=== PATIENT | female | born 1995 | race Caucasian/White ===

== ENCOUNTER 2016-12-12 20:26 | Inpatient (IN) | payer MEDICAID, OTHER ==
[~2016-12-12] VITALS: Ht 167.6 cm; Wt 72.3 kg
--- NOTE | 2016-12-12 20:26 | NUR ---
BIBA TO ER BED 3
--- NOTE | 2016-12-12 20:27 | NUR ---
Patient being evaluated by DR. MAZARIEGOS at bedside.
[2016-12-12 20:30] VITALS: BP 108/53
--- NOTE | 2016-12-12 20:30 | NUR ---
21 Y/O M BIBA C/O LEFT WRIST LACERATION 6 CM, SHE HURT HERSELF BY CUTTING HER WRIST WITH ENVIRONMENTAL SPECIALIST, CHRISTA OGDEN WAS ON SCENE AND PUT ON . STATES SHE IS IN PAIN 11/13 BUT REFUSES ANY MEDS FOR PAIN. ER MADE AWARE.
--- NOTE | 2016-12-12 20:45 | NUR ---
PT RESTING IN BED, VSS. STATES SHE IS IN PAIN BUT REFUSES MED FOR PAIN. ER MD MADE AWARE.
[2016-12-12 21:00] LABS: BASOPHILS # (AUTO) 0.2 K/uL (0.00-0.22); BASOPHILS % (AUTO) 2.5 % (0.0-2.0); EOSINOPHILS # (AUTO) 0.1 K/uL (0-0.4); EOSINOPHILS % (AUTO) 1.5 % (0.0-4.0); HEMATOCRIT 39.1 % (36-48); HEMOGLOBIN 13.2 g/dL (12.0-16.0); LYMPHOCYTES # (AUTO) 1.6 K/uL (2.5-16.5); LYMPHOCYTES % (AUTO) 23.7 % (20.5-51.1); MEAN CORPUSCULAR HEMOGLOBIN 28 pg (27-31); MEAN CORPUSCULAR HGB CONC 34 g/dL (33-37); MEAN CORPUSCULAR VOLUME 81 fL (80-94); MONOCYTES # (AUTO) 0.4 K/uL (0.8-1.0); MONOCYTES % (AUTO) 6.4 % (1.7-9.3); NEUTROPHILS # (AUTO) 4.4 K/uL (1.8-7.7); NEUTROPHILS % (AUTO) 65.9 % (42.2-75.2); PLATELET COUNT (AUTO) 252 K/uL (140-450); RED BLOOD CELL COUNT(AUTO) 4.81 MIL/uL (4.20-5.40); RED CELL DISTRIBUTION WIDTH 12.7 % (11.6-13.7); WHITE BLOOD COUNT (AUTO) 6.7 K/uL (4.8-10.8)
[2016-12-12 21:13] LABS: ANION GAP 13.8 (8-16); CALCIUM 8.8 mg/dL (8.5-10.1); CARBON DIOXIDE 27.8 mmol/L (21-32); CHLORIDE 105 mmol/L (98-107); CREATININE 0.9 mg/dL (0.6-1.3); GFR ARICAN-AMERICAN 102 mL/min (>90); GFR NON ARICAN-AMERICAN 84 mL/min (>90); GLUCOSE 94 mg/dL (74-106); POTASSIUM 3.6 mmol/L (3.5-5.1); SODIUM SERUM 143 mmol/L (136-145); UREA NITROGEN, BLOOD 9 mg/dL (7-18)
[2016-12-12 21:19] LABS: ALANINE AMINOTRANSFERASE 14 U/L (14-59); ALBUMIN 4.2 g/dL (3.4-5.0); ALCOHOL, BLOOD < 3 mg/dL (<3); ALKALINE PHOSPHATASE 73 U/L (46-116); ASPARTATE AMINOTRANSFERASE 11 U/L (15-37); TOTAL BILIRUBIN 0.3 mg/dL (0.0-1.0); TOTAL PROTEIN, SERUM 8.2 g/dL (6.4-8.2)
[2016-12-12 21:20] LABS: ACETAMINOPHEN < 0.5 ug/ml (10-30); SALICYLATE < 2.8 mg/dL (2.8-20.0)
[2016-12-12 21:22] LABS: INR 1.1 (0.8-1.2); PROTHROMBIN TIME 10.8 secs (10.8-13.4)
[2016-12-12 21:27] LABS: AMPHETAMINE, URINE NEG. ng/ml (NEG <=1000); BARBITURATE, URINE NEG. ng/ml (NEG <=200); BENZODIAZEPINE, URINE NEG. ng/mL (NEG <=200); CANNABINOID, URINE POS. ng/mL (NEG <=50); COCAINE, URINE NEG. ng/mL (NEG <=300); OPIATE, URINE NEG. ng/mL (NEG <=2000); PHENCYCLIDINE SCREEN,URINE NEG. ng/mL (NEG <=25)
--- NOTE | 2016-12-12 21:30 | NUR ---
Patient appears to be resting comfortably in bed. Vital Signs within normal limits. Respirations even and unlabored.
--- NOTE | 2016-12-12 22:45 | NUR ---
PT RESTING IN BED, NO S/S OF DISTRESS NOTED AT THE MOMENT. VS REMAIN STABLE.
--- NOTE | 2016-12-12 22:50 | NUR ---
Patient will be admitted to care of DR. ANDERS. Admited to TELEMETRY. Will go to [id number]. Belongings list completed. Report to MARA HANSEN.
[2016-12-12] MEDS ORDERED: ONDANSETRON 4 MG/2 ML VIAL IM/IVP PRN (22:55)
[2016-12-12] MEDS ORDERED: MORPHINE SULFATE 2 MG/ML SYR IVP PRN (22:55)
[2016-12-12] MEDS ORDERED: HYDROcodone/APAP 7.5/325 MG 1 TAB PO PRN (22:55)
[2016-12-12] MEDS ORDERED: ACETAMINOPHEN 325 MG TAB PO PRN (22:55)
[2016-12-12] MEDS ORDERED: DOCUSATE SODIUM 100 MG GELCAP PO PRN (22:55)
[2016-12-12] MEDS ORDERED: LORazepam 1 MG TAB PO PRN (22:55)
[2016-12-12 23:00] VITALS: BP 121/80
--- NOTE | 2016-12-12 23:00 | NUR ---
PT CAME TO THE UNIT VIA GURNEY FROM THE ER. AMBULATED TO THE BED. IS AOX4. ORIENTED PT TO THE UNIT. VITAL SIGNS TAKEN AND ARE STABLE. NO S/S OF DISTRESS. NO COMPLAINTS OF PAIN. WITH LEFT IV R HAND 22 G, SALINE LOCK, INTACT AND PATENT. WITH LEFT WRIST INJURY WRAPPED IN KERLEX. INITIAL ASSESSMENT DONE AND ADMISSION BUT GAVE LIMITED INFORMATION. WILL CONTINUE TO MONITOR. SAFETY PRECAUTIONS IN PLACE.
--- NOTE | 2016-12-12 23:15 | NUR ---
PT HAS 1:1 SITTER.
[2016-12-12 23:29] LABS: APPEARANCE,URINE CLEAR (CLEAR); BILIRUBIN,URINE NEGATIVE (NEGATIVE); BLOOD, URINE 3+ (NEGATIVE); COLOR,URINE YELLOW (YELLOW); LEUKOCYTE ESTERASE ,URINE NEGATIVE (NEGATIVE); NITRITE, URINE NEGATIVE (NEGATIVE); PROTEIN,URINE NEGATIVE (NEGATIVE); UGLUCOSE NEGATIVE (NEGATIVE)
[2016-12-12 23:46] LABS: CHOL/HDL RATIO 3.9 (1-4.5); FREE T4 (FREE THYROXINE) 0.98 ng/dL (0.76-1.46); MAGNESIUM 1.9 mg/dL (1.8-2.4); PHOSPHORUS 3.5 mg/dL (2.5-4.9); THYROID STIMULATING HORMONE 0.93 uIU/mL (0.34-3.74)
[2016-12-12 23:47] LABS: BACTERIA,URINE FEW /HPF (None Seen); CALCIUM OXALATE CRYSTALS,UR 0-3 /HPF (None Seen); WBC,URINE 0-5 (RARE) /HPF (0-5)
[2016-12-13] MEDS: NACL 0.9% 1,000 ML IV SCH ×2 (00:34→16:06)
--- NOTE | 2016-12-13 00:34 | NUR ---
PT SEEN ON BED ASLEEP. WILL CONTINUE TO MONITOR. SAFETY CHECKS IN PLACE.
--- NOTE | 2016-12-13 02:36 | NUR ---
PT SEEN ON BED ASLEEP. NO S/S OF DISTRESS. WILL CONTINUE TO MONITOR. SAFETY CHECKS IN PLACE.
[2016-12-13 04:00] VITALS: BP 104/67
--- NOTE | 2016-12-13 04:00 | NUR ---
VITAL SIGNS TAKEN AND IS STABLE. NO S/S OF DISTRESS. NO COMPLAINTS OF PAIN. WILL CONTINUE TO MONITOR. SAFETY CHECKS IN PLACE.
--- NOTE | 2016-12-13 06:38 | NUR ---
PT SEEN ON BED ASLEEP. NO S/S OF DISTRESS. SITTER AT BEDSIDE. WILL CONTINUE TO MONITOR. SAFETY CHECKS IN PLACE.
--- NOTE | 2016-12-13 07:15 | NUR ---
ENDORSED TO AM NURSE FOR CONTINUITY OF CARE. IN STABLE CONDITION.
--- NOTE | 2016-12-13 07:16 | NUR ---
PT AWAKE ALERT AND ORIENTED X4. BREATHING EVENLY AND UNLABORED. NO SIGNS OF ACUTE DISTRESS. SKIN IS WARM AND DRY. NOTED DRESSING ON LEFT WRIST, NO BLEEDING OR DISCHARGE NOTED. PT WITH DX OF 5150 SUICIDAL IDEATION. SAFETY PRECAUTIONS IN PLACE. 1:1 SITTER AT BEDSIDE. NO EPISODE OF SUICIDAL THOUGHTS NOTED AT THIS TIME. NO C/O ANY BOWEL BLADDER DISCOMFORT.NO C/O ANY PAIN. ALL NEEDS ATTENDED. CALL LIGHT WITHIN REACH.
[2016-12-13 08:00] VITALS: BP 119/73
[2016-12-13] MEDS: PANTOPRAZOLE 40 MG TABEC PO SCH ×2 (08:19→21:44)
--- NOTE | 2016-12-13 08:58 | NUR ---
PATIENT HAS BEEN SCREENED AND CATEGORIZED LOW NUTRITION RISK. PATIENT WILL BE SEEN WITHIN 7 DAYS OF ADMISSION. 12/19/[address]
--- NOTE | 2016-12-13 10:00 | NUR ---
PT RESTING WELL IN BED, 1:1 SITTER AT BEDSIDE. NO NOTED EPISODES OF SUICIDAL IDEATION. CONTINUE TO MONITOR.
[2016-12-13] MEDS ORDERED: SERT100T PO (10:20)
[2016-12-13] MEDS ORDERED: ESK300 PO (10:20)
[2016-12-13] MEDS ORDERED: LITHIUM CARBONATE 300 MG TAB PO SCH (10:24)
[2016-12-13] MEDS ORDERED: SERTRALINE 50 MG TAB PO SCH (10:24)
[2016-12-13 11:48] VITALS: BP 106/65
--- NOTE | 2016-12-13 13:02 | NUR ---
SS NOTE: SENT PSYCH PLACEMENT INQUIRIES TO: - [facility] - [facility] - [facility] - [facility] - [facility] - [facility]
--- NOTE | 2016-12-13 13:38 | NUR ---
OMA FROM [facility] CAN'T ACCEPT THE PATIENT DUE TO HER AGE.
[2016-12-13 16:00] VITALS: BP 116/70
--- NOTE | 2016-12-13 16:19 | NUR ---
SS NOTE: PER NETTE FROM [facility], THEY DO NOT TAKE [facility] PER ESTHER FROM [facility], PT'S INFORMATION IS PENDING REVIEW PER SHAHEEN FROM [facility], NO FEMALE BEDS AVAILABLE PER JACK FROM [facility], NO FEMALE BEDS AVAILABLE
--- NOTE | 2016-12-13 18:10 | NUR ---
PT WAS SEE BY DR. NAJERA, NOTED CLEARED PT FOR 5150, ARRANGE WITH SS FOR F/U PSYCH REFERRAL AND PSYCHOTHERAPY. PT AWARE, CONTINUE TO MONITOR.
--- NOTE | 2016-12-13 19:26 | NUR ---
P AWAKE AND RESPONSIVE, NO SIGNS OF ACUTE DISTRESS. ENDORSED TO ONCOMING MATERIAL CHASER NURSE FOR CONTINUITY OF CARE.
--- NOTE | 2016-12-13 19:30 | NUR ---
RECEIVED PT IN STABLE CONDITION FROM AM NURSE. ON TELE MONITOR. AWAKE , ALERT AND ORIENTED X4. WITH VISITOR AT BEDSIDE. NO C/O ANY DISCOMFORT NOR PAIN NOTED. HAS IVF INFUSING WELL ON THE RT HAND #22. CLEAR AND PATENT. AMBULATORY TO BATHROOM. PLAN OF CARE DISCUSSED AND VERBALIZED UNDERSTANDING. CALL LIGHT PLACED WITHIN EASY REACH. WILL CONTINUE TO MONITOR .
[2016-12-13 19:45] VITALS: BP 125/78
--- NOTE | 2016-12-13 21:00 | NUR ---
KERLIX ON THE LT WRIST WAS REMOVED PER PT REQUEST. LACERATION WITH DERMABAND. NO BLEEDING NOTED. AREA CLEANED WITH NS THEN PAT DRY, THEN COVERED WITH NON ADHESIVE DRESSING.
[2016-12-14 00:18] VITALS: BP 116/70
--- NOTE | 2016-12-14 02:00 | NUR ---
SLEEPING WELL. NO S/S DISCOMFORT NOTED.
[2016-12-14 04:00] VITALS: BP 122/68
[2016-12-14 05:37] LABS: BASOPHILS # (AUTO) 0.1 K/uL (0.00-0.22); BASOPHILS % (AUTO) 1.8 % (0.0-2.0); EOSINOPHILS # (AUTO) 0.1 K/uL (0-0.4); EOSINOPHILS % (AUTO) 1.6 % (0.0-4.0); HEMATOCRIT 38.6 % (36-48); HEMOGLOBIN 12.9 g/dL (12.0-16.0); LYMPHOCYTES # (AUTO) 1.9 K/uL (2.5-16.5); MEAN CORPUSCULAR HEMOGLOBIN 28 pg (27-31); MEAN CORPUSCULAR HGB CONC 34 g/dL (33-37); MEAN CORPUSCULAR VOLUME 82 fL (80-94); MONOCYTES # (AUTO) 0.6 K/uL (0.8-1.0); MONOCYTES % (AUTO) 7.6 % (1.7-9.3); NEUTROPHILS # (AUTO) 5.4 K/uL (1.8-7.7); PLATELET COUNT (AUTO) 249 K/uL (140-450); RED CELL DISTRIBUTION WIDTH 12.7 % (11.6-13.7); WHITE BLOOD COUNT (AUTO) 8.1 K/uL (4.8-10.8)
[2016-12-14 05:49] LABS: CALCIUM 8.5 mg/dL (8.5-10.1); CARBON DIOXIDE 23.8 mmol/L (21-32); CREATININE 0.7 mg/dL (0.6-1.3); POTASSIUM 3.8 mmol/L (3.5-5.1)
--- NOTE | 2016-12-14 07:00 | NUR ---
PT ON STABLE CONDITION . NO C/O OF ANY DISCOMOFORT NOTED.
--- NOTE | 2016-12-14 07:25 | NUR ---
RECEIVED REPORT FROM THE FILTER PULP WASHER NURSE AT BEDSIDE FOR CONTINUITY OF CARE. PT AWAKE AND ALERT AND ORIENTED. INTRODUCED MYSELF AND UPDATED THE BOARD. PT HAS HER BREAKFAST BUT IS NOT EATING . NO APPETITE. PT IS NO LONGER ON 1:1 SITTER. PER MD, SHE NEEDS PLACEMENT FOR PSYCHOTHERAPY. WILL AWAIT PLACEMENT. NOTED PT HAS SCARS FROM CUTTING ON L WRIST. TRANSPARENT DRESSING IN PLACE. PT IS ANXIOUS TO SEE MD AND TO BE TRANSFERRED. WILL CONTINUE TO MONITOR PT.
[2016-12-14 08:00] VITALS: BP 131/82
[2016-12-14] MEDS: NACL 0.9% 1,000 ML IV SCH (08:36)
[2016-12-14] MEDS: PANTOPRAZOLE 40 MG TABEC PO SCH (08:37)
--- NOTE | 2016-12-14 08:40 | NUR ---
ADMINISTERED MORNING MEDS. PT TOLERATED WELL. WILL CONTINUE TO MONITOR PT.
[2016-12-14] MEDS ORDERED: LITHIUM CARBONATE 300 MG TAB PO SCH (09:00)
[2016-12-14] MEDS ORDERED: SERTRALINE 50 MG TAB PO SCH (09:00)
--- NOTE | 2016-12-14 09:00 | NUR ---
PT NAUSEATED AND VOMITED. GAVE ZOFRAN. FAMILY AT BEDSIDE. WILL CONTINUE TO MONITOR PT.
[2016-12-14 09:21] LABS: T4 (THYROXINE) 8.2 ug/dL (4.5-12.0)
--- NOTE | 2016-12-14 10:47 | NUR ---
PT WAKE AND ORIENTED. FAMILY AT BEDSIDE. WAITING FOR D/C. WILL CONTINUE TO MONITOR PT.
--- NOTE | 2016-12-14 11:11 | NUR ---
SS NOTE: I SPOKE WITH PT BEDSIDE AND PROVIDED HER WITH OUTPT [facility].
[2016-12-14 12:00] VITALS: BP 115/73
--- NOTE | 2016-12-14 13:10 | NUR ---
D/C INSTRUCTIONS GIVEN. ANSWERED ALL QUESTIONS. PT VERBALIZED UNDERSTANDING. SIGNED D/C PAPERS. REMOVED IV, CANNULA INTACT. NO BLEEDING NOTED. REMOVED ID BANDS. REMOVED TELE MONITOR. PT WILL GET DRESSED AND WILL GATHER HER BELONGINGS. WILL LET ME KNOW WHEN HER RIDE GETS HERE.
[2016-12-14 13:11] LABS: HEMOGLOBIN A1C 5.3 % (4.8-5.6)
--- NOTE | 2016-12-14 13:40 | NUR ---
SAMPLE COORDINATOR WHEELING OUT PT INTO THE LOBBY AND OUT TO THE FRONT. FAMILY WITH WITH PT. PERSONAL BELONGINGS WITH PT. PT IN STABLE CONDITION.
== END 2016-12-14 13:40 | disposition home or self-care (01) | DRG 917 ==
LOC: MED 20:26 → MTU 22:33
PROVIDERS: ADMIT Family Medicine; ATTEND Family Medicine
PROC: 0HQEXZZ Repair Left Lower Arm Skin, External Approach (ICD-10-PCS; principal; 2016-12-12)
DX: T40.7X1A Poisoning by cannabis (derivatives), accidental (unintentional), initial encounter (principal); G92 Toxic encephalopathy; R45.851 Suicidal ideations; F33.2 Major depressive disorder, recurrent severe without psychotic features; E78.5 Hyperlipidemia, unspecified; F12.10 Cannabis abuse, uncomplicated; F17.210 Nicotine dependence, cigarettes, uncomplicated; R31.29 Other microscopic hematuria; S61.512A Laceration without foreign body of left wrist, initial encounter; X78.8XXA Intentional self-harm by other sharp object, initial encounter; Y93.89 Activity, other specified; Z90.49 Acquired absence of other specified parts of digestive tract; Y92.89 Other specified places as the place of occurrence of the external cause; Y99.8 Other external cause status
CPT/HCPCS: 36415; 71010; 80048; 80053; 80305; 81001; 81025; 82150; 83036; 83690; 83735; 83880; 84100; 84436; 84439; 84443; 84479; 85025; 85610; 85730; 87081; 93005; 99285; G0480; G0482; J2405; J7030; Q0092

== ENCOUNTER 2017-06-25 04:43 | Emergency (ER) | payer MEDICAID ==
[~2017-06-25] VITALS: Ht 167.6 cm; Wt 77.1 kg
[~2017-06-25 04:43] MED LIST: ESK300 PO; SERT100T PO
[2017-06-25 04:52] VITALS: BP 142/91
--- NOTE | 2017-06-25 05:02 | NUR ---
PT AMBULATED TO ER BED 11
--- NOTE | 2017-06-25 05:04 | NUR ---
PATIENT IS A 21 Y/O FEMALE WHO PRESENTS TO THE ED C/O ABD PAIN. PT STATES, "MY STOMACH HAS BEEN HURTING FOR ABOUT 1 DAY." PT REPORTS 8/10 SHARP ABD PAIN THAT RADIATES TO THE BACK. PT DENIES CP, SOB REPORTS VOMITING DENIES NAUSEA/DIARRHEA. PT AAOX4, RR EVEN/UNLABORED. PT REPOSITIONED FOR COMFORT, BED IN LOWEST POSITION. ER MD DR. LANE NOTIFIED. WILL CONTINUE TO MONITOR.
[2017-06-25] MEDS ORDERED: KETOROLAC 60 MG/2 ML VIAL IM ONE (05:45)
[2017-06-25 06:57] LABS: BASOPHILS # (AUTO) 0.2 K/uL (0.00-0.22); BASOPHILS % (AUTO) 2.5 % (0.0-2.0); EOSINOPHILS # (AUTO) 0.2 K/uL (0-0.4); EOSINOPHILS % (AUTO) 1.9 % (0.0-4.0); HEMATOCRIT 43.1 % (36-48); HEMOGLOBIN 14.4 g/dL (12.0-16.0); LYMPHOCYTES # (AUTO) 1.5 K/uL (2.5-16.5); LYMPHOCYTES % (AUTO) 17.9 % (20.5-51.1); MEAN CORPUSCULAR HEMOGLOBIN 27 pg (27-31); MEAN CORPUSCULAR HGB CONC 33 g/dL (33-37); MEAN CORPUSCULAR VOLUME 82 fL (80-94); MONOCYTES # (AUTO) 0.5 K/uL (0.8-1.0); MONOCYTES % (AUTO) 6.5 % (1.7-9.3); NEUTROPHILS # (AUTO) 5.8 K/uL (1.8-7.7); NEUTROPHILS % (AUTO) 71.2 % (42.2-75.2); PLATELET COUNT (AUTO) 303 K/uL (140-450); RED BLOOD CELL COUNT(AUTO) 5.26 MIL/uL (4.20-5.40); RED CELL DISTRIBUTION WIDTH 12.5 % (11.6-13.7); WHITE BLOOD COUNT (AUTO) 8.3 K/uL (4.8-10.8)
--- NOTE | 2017-06-25 07:14 | NUR ---
Pt report given to ARACELIS TERRY. Transfer of care at this time.
[2017-06-25 07:27] LABS: BILIRUBIN,URINE 1+ (NEGATIVE); BLOOD, URINE TRACE-I (NEGATIVE); COLOR,URINE YELLOW (YELLOW); NITRITE, URINE NEGATIVE (NEGATIVE); UGLUCOSE NEGATIVE (NEGATIVE)
[2017-06-25 07:28] LABS: APPEARANCE,URINE HAZY (CLEAR); LEUKOCYTE ESTERASE ,URINE 1+ (NEGATIVE)
[2017-06-25 07:30] LABS: RBC,URINE 0-5 (RARE) /HPF (0-5)
[2017-06-25 07:32] LABS: WBC,URINE 6-15 (FEW) /HPF (0-5)
[2017-06-25 07:43] LABS: ANION GAP 11.1 (8-16); CARBON DIOXIDE 28.1 mmol/L (21-32); POTASSIUM 3.2 mmol/L (3.5-5.1)
[2017-06-25 07:44] LABS: CREATININE 0.7 mg/dL (0.6-1.3)
[2017-06-25 07:52] LABS: TOTAL BILIRUBIN 0.6 mg/dL (0.0-1.0)
[2017-06-25 07:53] LABS: ALBUMIN 4.6 g/dL (3.4-5.0)
[2017-06-25] MEDS ORDERED: POTASSIUM CHLORIDE 10 MEQ TABER PO ONE (08:00)
--- NOTE | 2017-06-25 08:12 | NUR ---
PT IN NAD. RESP EVEN AND UNLABORED. REPORTS DYSURIA, NO BLEEDING. VSS.
--- NOTE | 2017-06-25 09:35 | NUR ---
Patient discharged with v/s stable. Written and verbal after care instructions given and explained. Patient alert, oriented and verbalized understanding of instructions. Ambulatory with steady gait. All questions addressed prior to discharge. ID band removed. Patient advised to follow up with PMD. Rx of MIRALAX, CIPRO given. Patient educated on indication of medication including possible reaction and side effects. Opportunity to ask questions provided and answered.
[2017-06-25 09:40] VITALS: BP 133/78
== END 2017-06-25 09:35 | disposition home or self-care (01) ==
LOC: MED 04:43
DX: K59.00 Constipation, unspecified (principal); N39.0 Urinary tract infection, site not specified; F32.9 Major depressive disorder, single episode, unspecified; F17.210 Nicotine dependence, cigarettes, uncomplicated; Z90.49 Acquired absence of other specified parts of digestive tract
CPT/HCPCS: 36415; 74018; 80053; 81001; 81025; 83690; 85025; 87086; 96372; 99285; J1885; Q0092